=== PATIENT | female | born 1970 | race Caucasian/White ===

== ENCOUNTER 2016-04-07 05:48 | Day surgery (SDC) | payer OTHER ==
[~2016-04-07] VITALS: Ht 180.3 cm; Wt 66.2 kg
[2016-04-07] VITALS (13 sets, daily range): BP systolic 106–157; BP diastolic 61–89; PULSE 62–80; RESP 17–22; Ht 180.3 cm; Wt 66.2 kg
[2016-04-07] MEDS ORDERED: CLINDAMYCIN 900 MG/D5W (PMX) 50 ML IVPB SCH (06:00)
[2016-04-07] MEDS ORDERED: LACTATED RINGER'S 1,000 ML IV* SCH (06:00)
[2016-04-07] MEDS ORDERED: CARI350T PO (07:34)
[2016-04-07] MEDS ORDERED: MIDAZOLAM 1 MG/ML 2 ML INJ ONE (07:35)
[2016-04-07] MEDS ORDERED: FENTAnyl 50 MCG/ML VIAL ONE (07:35)
[2016-04-07] MEDS ORDERED: PROPOFOL 20 ML ONE (07:35)
[2016-04-07] MEDS ORDERED: METOCLOPRAMIDE 10 MG INJ ONE (08:09)
[2016-04-07] MEDS ORDERED: DEXAMETHASONE 4 MG/ML 1 ML INJ ONE (08:09)
[2016-04-07] MEDS ORDERED: KETOROLAC 30 MG INJ ONE (08:09)
[2016-04-07] MEDS ORDERED: ONDANSETRON 4 MG INJ ONE (08:09)
[2016-04-07] MEDS ORDERED: morphine (1 MG/ML) 10ML SYRINGE IV PRN ×3 (08:30)
[2016-04-07] MEDS ORDERED: ONDANSETRON 4 MG INJ IV PRN (08:30)
[2016-04-07] MEDS ORDERED: HYDROmorphONE (0.2 MG/ML) 10ML SYG IV PRN ×3 (08:30)
[2016-04-07] MEDS ORDERED: DIPHENHYDRAMINE 50 MG INJ IV PRN (08:30)
== END 2016-04-07 10:18 | disposition home or self-care (01) ==
LOC: SDS 05:48
PROVIDERS: ATTEND Specialist
DX: N92.1 Excessive and frequent menstruation with irregular cycle (principal); N88.2 Stricture and stenosis of cervix uteri; D25.9 Leiomyoma of uterus, unspecified; Z85.43 Personal history of malignant neoplasm of ovary; Z85.89 Personal history of malignant neoplasm of other organs and systems
CPT/HCPCS: 58558; 84703; 88305; J1100; J1885; J2250; J2405; J2765; J3010; Z7512; Z7610

== ENCOUNTER 2016-08-28 06:05 | Inpatient (IN) | payer OTHER ==
[~2016-08-28] VITALS: Ht 182.9 cm; Wt 66.5 kg
[2016-08-28] VITALS (19 sets, daily range): BP systolic 115–148; BP diastolic 71–83; PULSE 52–98; RESP 12–19
[~2016-08-28 06:05] MED LIST: CARI350T PO; CLINDAMYCIN 900 MG/D5W (PMX) 50 ML IVPB PRN
[2016-08-28] MEDS ORDERED: LACTATED RINGER'S 1,000 ML IV* SCH (06:30)
[2016-08-28] MEDS ORDERED: MIDAZOLAM 1 MG/ML 2 ML INJ ONE (07:38)
[2016-08-28] MEDS ORDERED: morphine SULFATE/PF (10 MG/10 ML) INJ ONE (07:39)
--- NOTE | 2016-08-28 07:50 | HP ---
Date/Time of Note Date/Time of Note DATE: 08/28/16 TIME: 07:45 Assessment/Plan VTE Prophylaxis VTE Prophylaxis Intervention: ambulation Assessment/Plan Chief Complaint/Hosp Course pelvic pain and fibroid uterus desires ISAEL salpingectomy She does not want me to remove or biopsy her ovaries even if she has ovarian cancer Problems: Assessment/Plan Exploratory laparotomy, ISAEL or possible supracervical hysterectomy and bilateral salpingectomy. Informed consent has been obtained. HPI/ROS Admit Date/Time Admit Date/Time Aug 28, 2016 at 06:05 Hx of Present Illness patient with fibroid uterus and pelvic pain desires to have definitive surgery with hysterectomy. options of removing or retaining the ovaries d/w patient. the risk of future ovarian cancer which is 1 in 60 women d/w patient. she desires to retain her ovaries. Surgical risks including infection, bleeding, damage to other organs, blood transfusion d/w patient. Informed consent obtained. ROS Constitutional: improved, no complaints Eyes: no complaints ENT: no complaints Respiratory: no complaints Cardiovascular: no complaints Gastrointestinal: no complaints Genitourinary: no complaints Musculoskeletal: no complaints Skin: no complaints Neurologic: no complaints Endocrine: no complaints Lymphatic: no complaints Psychological: nl mood/affect, no complaints Immunologic: no complaints PMH/Family/Social Past Medical History Medical History: no pertinent history Past Surgical History appendectomy, tonsillectomy and oral surgeries. Family History Significant Family History: no pertinent family hx Social History Alcohol Use: none Smoking Status: Never smoker Drug Use: none Exam/Review of Systems Exam Constitutional: alert, oriented, well developed Psych: nl mood/affect, no complaints Head: atraumatic, normocephalic Eyes: EOMI, PERRL, nl conjunctiva, nl lids, nl sclera ENMT: nl external ears & nose, nl lips & teeth, nl nasal mucosa & septum Neck: non-tender, supple Respiratory: clear to auscultation, normal air movement Cardiovascular: nl pulses, regular rate and rhythm Gastrointestinal: nl liver, spleen, non-tender, soft Musculoskeletal: nl extremities to inspection Extremities: normal pulses Neurological: FUR REPAIR INSPECTOR II-XII intact, nl mental status, nl speech, nl strength Skin: nl turgor, No rash or lesions Lymph: nl lymph nodes Medications Medications Current Medications Clindamycin HCl/ Dextrose 50 ml @ 100 mls/hr OC PRN IVPB ONCALL TO OR; Start 08/28/16 at 06:00; Stop 08/28/16 at 09:00 Lactated Ringer's (Lr) 1,000 ml @ 125 mls/hr Q8H IV* ; Start 08/28/16 at 06:30 ; Stop 08/28/16 at 14:29 BELA SANDOVAL MD Aug 28, 2016 07:50
--- NOTE | 2016-08-28 07:59 | RADRPT ---
PROCEDURE: XR Chest. CLINICAL INDICATION: Preop TECHNIQUE: A single AP view of the chest was obtained. COMPARISON: None. FINDINGS: The lungs are hyperinflated. No focal airspace opacification, pleural effusion or pneumothorax is s een. The cardiomediastinal silhouette is within normal limits for size. The osseous structures are unremarkable. IMPRESSION: Hyperinflation of the lungs. Otherwise, unremarkable chest x-ray. RPTAT: HH .Charlene Munson MD, MD Date Time Electronically viewed and signed by .Charlene Munson MD, on 08/28/2016 07:59 .G/
[2016-08-28] MEDS ORDERED: PHENYLephrine (100 MCG/ML) 5ML SYG ONE ×2 (08:20→09:11)
[2016-08-28] MEDS ORDERED: DIPHENHYDRAMINE 50 MG INJ IV PRN (09:30)
[2016-08-28] MEDS ORDERED: FENTAnyl 50 MCG/ML VIAL IV PRN (09:30)
[2016-08-28] MEDS ORDERED: MEPERIDINE 25 MG INJ IV PRN (09:30)
[2016-08-28] MEDS ORDERED: NALOXONE (0.4 MG/ML) INJ IV PRN (09:30)
[2016-08-28] MEDS ORDERED: ONDANSETRON 4 MG INJ IV PRN (09:30)
[2016-08-28] MEDS ORDERED: NEOSTIGMINE 3 MG/3 ML SYRINGE ONE (09:37)
[2016-08-28] MEDS ORDERED: ROCURONIUM 50 MG INJ ONE (09:37)
[2016-08-28] MEDS ORDERED: GLYCOPYRROLATE 0.4 MG INJ ONE (09:37)
[2016-08-28] MEDS ORDERED: ONDANSETRON 4 MG INJ ONE (09:37)
[2016-08-28] MEDS ORDERED: PROPOFOL 20 ML ONE (09:37)
[2016-08-28] MEDS ORDERED: LIDOCAINE 2% (SDV) 5 ML INJ ONE (09:37)
[2016-08-28] MEDS ORDERED: CEFAZOLIN 1 GM INJ ONE (09:39)
[2016-08-28] MEDS ORDERED: HYDROmorphONE 2 MG TAB PO PRN (10:00)
[2016-08-28] MEDS: KETOROLAC 30 MG INJ IV PRN (10:35)
--- NOTE | 2016-08-28 10:39 | OPR ---
DATE OF OPERATION: 08/28/2016 PREOPERATIVE DIAGNOSIS: Pelvic pain, patient desires definitive treatment. POSTOPERATIVE DIAGNOSIS: Pelvic pain, patient desires definitive treatment. PROCEDURE PERFORMED: Exploratory laparotomy, total abdominal hysterectomy, lysis of adhesions from tubes and ovaries and lysis of adhesions from omentum, bilateral salpingectomies. SURGEON: Bela Boss MD DIELECTRIC PRESS OPERATOR: Manuel Cross MD ESTIMATED BLOOD LOSS: 100 mL. COMPLICATIONS: None. FINDINGS: There were dense adhesions from the omentum to anterior abdominal wall. There were dense adhesions from the tube to the right ovary, but the ovary was perfectly normal otherwise. The left ovary was also completely normal. INFORMED CONSENT: Please see my preop H and P for the consent process. The patient desires to retain her ovaries despite being at relative risk of future ovarian cancer which is 1 in 60 women. DESCRIPTION OF PROCEDURE: She was taken to the operating room. General anesthesia was induced. She was prepped and draped in the usual sterile fashion. Vaginal prep and abdominal prep was done. Gamez catheter was inserted. She was in the supine position. After she was prepped and draped, surgical time out was done, surgery and patient was identified. Then, we proceeded and made a Pfannenstiel skin incision. Incision was taken down in layers. The fascia was cut, undermined, from the underlying muscle using sharp and blunt dissection. All the bleeders were cauterized. We had to proceed with lysis of adhesions from the omentum to the anterior abdominal wall to get access to our surgical site, at all times protecting the bowel. We took down the adhesions and then an O'Carlos-O'Mcarthur retractor was placed, 3 moist laparotomy packs were used to pack the bowel away. Two large clamps were used to grab the uterus. The right round ligament was coagulated twice using the LigaSure and then cut. Same procedure on the contralateral side. Then, we proceeded with developing a bladder flap using a Shalini and bladder was pushed down. A window was developed in the round ligament and the utero-ovarian pedicle on the right side was ligated using the LigaSure twice and then cut. There was no bleeding. Same procedure was done on contralateral side. Bladder flap was pushed further down and the right uterine artery pedicle was clamped, cut, suture ligated and the left side was clamped, cut, suture ligated. The bladder flap was pushed further down and the cardinal ligaments were clamped, cut, suture ligated using straight Emory clamps and the uterosacrals were clamped, cut, suture ligated. The vagina was entered using a knife and using Melinda scissors, the specimen was cut and sent to pathology. The vaginal apex on both sides was suture ligated and then interrupted sutures were used to place [id number] sutures to close the cuff. We had to proceed with separation of the right tube from the right ovary , and after we the ovary from the tube, the right ovary was removed using the LigaSure and the left ovary was removed using the LigaSure. We irrigated and then we filled the pelvis using warm water and there was absolutely no evidence of any bleeding from any our pedicles. Each pedicle was evaluated individually. The vaginal cuff was evaluated very carefully and there was no bleeding. At this time, the posterior peritoneum was closed using a 2-0 Vicryl and all laparotomy packs were removed. O'Carlos-O'Mcarthur removed. I explored the abdomen, there were no laparotomy packs left inside. The peritoneum was closed using 2-0 Vicryl. The rectus muscles reapproximated using 2-0 Vicryl. Rectus muscles, rectus fascia were evaluated, all bleeders cauterized. Rectus fascia was closed using #1 Vicryl. Subcutaneous tissue was cleaned, irrigated, all bleeders cauterized and closed using 3-0 plain and then the skin closed using 4- 0 Monocryl in a subcuticular fashion. All counts were correct. The patient tolerated the procedure well. Dictated By: BELA VELEZ/LOPEZ Conf#: [id number] DID#: [id number] BRODERICK
[2016-08-28] MEDS: morphine 2 MG INJ IV PRN ×2 (13:53→22:00)
[2016-08-28] MEDS ORDERED: CEFAZOLIN 2 GM/50 ML (PMX) 50 ML IVPB SCH (14:00)
[2016-08-28] MEDS: ONDANSETRON 4 MG INJ IV PRN (18:14)
[2016-08-28] MEDS: METOCLOPRAMIDE 10 MG INJ IV PRN (19:13)
[2016-08-29] MEDS: morphine 2 MG INJ IV PRN ×2 (02:14→04:55)
[2016-08-29 05:36] LABS: ADD SCAN DIFF NO
[2016-08-29 05:48] LABS: BASOPHILS % 0.3 % (0.0-2.0); EOSINOPHILS # 0.1 10^3/ul (0.0-0.5); EOSINOPHILS % 1.8 % (0.0-7.0); HEMATOCRIT 33.5 % (37.0-47.0); HEMOGLOBIN 9.9 g/dl (12.0-16.0); LYMPHOCYTES # 0.8 10^3/ul (0.8-2.9); LYMPHOCYTES % 11.8 % (15.0-51.0); MEAN CORPUSCULAR HEMOGLOBIN 25.6 pg (29.0-33.0); MEAN CORPUSCULAR HGB CONC 29.6 g/dl (32.0-37.0); MEAN CORPUSCULAR VOLUME 86.8 fl (82.0-101.0); MEAN PLATELET VOLUME 12.4 fl (7.4-10.4); MONOCYTE # 0.5 10^3/ul (0.3-0.9); NEUTROPHIL # 5.4 10^3/ul (1.6-7.5); NEUTROPHILS % 78.7 % (39.0-77.0); PLATELET COUNT 186 10^3/UL (140-415); RED BLOOD COUNT 3.86 10^6/ul (4.20-5.40); RED CELL DISTRIBUTION WIDTH 13.3 % (11.5-14.5); WHITE BLOOD COUNT 6.8 10^3/ul (4.8-10.8)
[2016-08-29 06:07] LABS: CALCIUM 9.2 mg/dl (8.4-10.2); CREATININE 0.64 mg/dl (0.44-1.00); POTASSIUM 4.7 mmol/L (3.5-5.1)
[2016-08-29] MEDS: ONDANSETRON 4 MG INJ IV PRN (06:44)
[2016-08-29] MEDS: KETOROLAC 30 MG INJ IV PRN ×2 (08:08→14:40)
[2016-08-29 08:52] VITALS: BP 131/72; RESP 18
--- NOTE | 2016-08-29 10:12 | RADRPT ---
Vent Rate: 71 bpm RR Interval: 0 msec TN Interval: 124 msec QRS Duration: 82 msec QT Interval: 420 msec QTC Interval: 456 msec P-R-T [place]: 69 - 80 - 80 degrees Normal sinus rhythm Normal ECG Electronically Signed By: Shamir Crockett [id number]
--- NOTE | 2016-08-29 11:45 | PN ---
Date/Time of Note Date/Time of Note DATE: 08/29/16 TIME: 11:43 Assessment/Plan VTE Prophylaxis VTE Prophylaxis Intervention: ambulation Lines/Catheters IV [facility] Saline Lock Urinary Cath still in place: No Assessment/Plan Chief Complaint/Hosp Course POD 1 s/p ISAEL, bilateral salpingectomy -continue postop care -advance diet as tolerated -encourage ambulation Problems: Subjective 24 Hr Interval Summary Free Text/Dictation Patient nauseated, but tolerating clears. Ambulating to restroom. Minimal bleeding. Pain controlled. Exam/Review of Systems Vital Signs Vitals Vital Signs Date Time Temp Pulse Resp B/P Pulse Ox O2 Delivery O2 Flow Rate FiO2 08/29/16 08:52 97.9 81 18 131/72 100 08/28/16 14:49 Room Air 08/28/16 10:02 6.0 Intake and Output 08/28/16 08/28/16 08/29/16 14:59 22:59 06:59 Intake Total 1200 ml 210 ml 220 ml Output Total 500 ml 800 ml 500 ml Balance 700 ml -590 ml -280 ml Exam Gen: NAD Abd: I-C/D/I with bandage Perineum: no blood Results Result Diagram: 08/29/16 0425 08/29/16 0425 Results 24 hrs Laboratory Tests Test 08/29/16 04:25 08/29/16 06:14 White Blood Count 6.8 Red Blood Count 3.86 L Hemoglobin 9.9 L Hematocrit 33.5 L Mean Corpuscular Volume 86.8 Mean Corpuscular Hemoglobin 25.6 L Mean Corpuscular Hemoglobin Concent 29.6 L Red Cell Distribution Width 13.3 Platelet Count 186 Mean Platelet Volume 12.4 H Neutrophils % 78.7 H Lymphocytes % 11.8 L Monocytes % 7.0 Eosinophils % 1.8 Basophils % 0.3 Nucleated Red Blood Cells % 0.0 Neutrophils # 5.4 Lymphocytes # 0.8 Monocytes # 0.5 Eosinophils # 0.1 Basophils # 0.0 Nucleated Red Blood Cells # 0.0 Sodium Level 143 Potassium Level 4.7 Chloride Level 106 Carbon Dioxide Level 28 Anion Gap 14 Blood Urea Nitrogen 11 Creatinine 0.64 Glucose Level 104 Calcium Level 9.2 Lab Scanned Report REFERENCE LAB Medications Medications Current Medications Ibuprofen (Motrin) 600 mg Q8H PRN PO PAIN AND OR ELEVATED TEMP; Start 08/28/16 at 10:00 Morphine Sulfate (morphine) 2 mg Q2H PRN IV BREAKTHROUGH PAIN Last administered on 08/29/16 04:55; Admin Dose 2 MG; Start 08/28/16 at 10:00 Ondansetron HCl (Zofran Inj) 4 mg Q6H PRN IV NAUSEA AND/OR VOMITING Last administered on 08/29/16 06:44; Admin Dose 4 MG; Start 08/28/16 at 10:00 Metoclopramide HCl (Reglan) 10 mg Q6H PRN IV NAUSEA AND/OR VOMITING Last administered on 08/28/16 19:13; Admin Dose 10 MG; Start 08/28/16 at 10:00 Hydromorphone HCl (Dilaudid) 2 mg Q3H PRN PO pain; Start 08/28/16 at 10:00 Ketorolac Tromethamine (Toradol) 30 mg Q6H PRN IV PAIN Last administered on 08:08; Admin Dose 30 MG; Start 08/28/16 at 10:00; Stop 08/30/16 at 10:00 LUZ CONRAD Aug 29, 2016 11:45
[2016-08-29] MEDS: METOCLOPRAMIDE 10 MG INJ IV PRN ×2 (13:07→20:17)
[2016-08-29 21:08] VITALS: BP 139/77; RESP 18
[2016-08-30 08:00] VITALS: BP 128/68; PULSE 87; RESP 18
[2016-08-30 08:55] VITALS: BP 128/68; RESP 16
--- NOTE | 2016-08-30 14:27 | QN ---
Documentation Comment POD#2 is stable afebrile Vs stable +voids +flatus Gen NAD Abd soft NT ND Dressing to be removed Gen NAD --->ambulation --->advance diet KAROLYN FREIRE M.D. Aug 30, 2016 14:27
[2016-08-30] MEDS: IBUPROFEN 600 MG TAB PO PRN (16:30)
[2016-08-30 20:29] VITALS: BP 133/72; RESP 20
[2016-08-31] MEDS: IBUPROFEN 600 MG TAB PO PRN ×2 (06:07→14:30)
[2016-08-31 07:10] VITALS: BP 117/68; RESP 16
--- NOTE | 2016-08-31 19:18 | DS ---
DATE OF ADMISSION: 08/28/2016 DATE OF DISCHARGE: 08/31/2016 FINAL DIAGNOSES: Status post total abdominal hysterectomy bilateral salpingo-oophorectomy. HISTORY AND HOSPITAL COURSE: The patient is a 45-year-old patient who underwent a TAHBSO on August 28 due to fibroids menorrhagia. Patient postop is doing well. Postop day #3, the patient toleratin g p.o., is ambulating, is passing gas, has had a bowel movement. Postop hemoglobin is 9.9. Chemistr y panel was within normal limits. PHYSICAL EXAMINATION: VITAL SIGNS: Stable. HEART: Regular rhythm. CHEST: His chest was clear to auscultation bilaterally. ABDOMEN: Soft, nontender, no rebound or guarding. Wound is clean, dry and intact. EXTREMITIES: There is no edema. At this point the patient will be discharged home. Follow up with Dr. Boss in 2 weeks. ER pr ecautions were given. Patient stable upon discharge. Patient given Motrin and Colace on discharge home. Dictated By: JUNIOR OSBORNE MD /NTS Conf#: [id number] DID#: [id number]
== END 2016-08-31 17:50 | disposition home or self-care (01) | DRG 743 ==
LOC: REC 06:05 → PP2 14:33
PROVIDERS: ADMIT Specialist; ATTEND Specialist
PROC: 0UTC0ZZ Resection of Cervix, Open Approach (ICD-10-PCS; 2016-08-28)
PROC: 0UT70ZZ Resection of Bilateral Fallopian Tubes, Open Approach (ICD-10-PCS; 2016-08-28)
PROC: 0UT90ZZ Resection of Uterus, Open Approach (ICD-10-PCS; principal; 2016-08-28 07:30)
DX: N92.0 Excessive and frequent menstruation with regular cycle (principal); D25.9 Leiomyoma of uterus, unspecified; R10.2 Pelvic and perineal pain
CPT/HCPCS: 71010; 80048; 82962; 85025; 86850; 86900; 86901; 87086; 88307; 93005; J0690; J1200; J1885; J2175; J2250; J2270; J2274; J2370; J2405; J2710; J2765; J3010